=== PATIENT | male | born 1975 | race Caucasian/White ===

== ENCOUNTER 2020-04-11 23:52 | Emergency (ER) | payer BC ==
[~2020-04-11] VITALS: Ht 193 cm; Wt 157.5 kg
[2020-04-11] MEDS ORDERED: [UNRECOGNIZED DRUG - REMARK] (23:57)
[2020-04-12] MEDS ORDERED: KETOROLAC 30 MG/1 ML ONE (00:18)
[2020-04-12] MEDS ORDERED: ONDANSETRON 2MG/ML, 2ML ONE (00:18)
[2020-04-12 00:24] LABS: BASOPHILS # (AUTO) 0.04 x10^3/uL (0-0.1); BASOPHILS % (AUTO) 0 % (0-1); EOSINOPHILS # (AUTO) 0.15 x10^3/uL (0-0.4); EOSINOPHILS % (AUTO) 2 % (1-7); LYMPHOCYTES # (AUTO) 2.17 x10^3/uL (1-3.4); LYMPHOCYTES % (AUTO) 21 % (22-44); MD NO; MEAN CORPUSCULAR HGB CONC 33.4 g/dL (33.2-36.2); MEAN CORPUSCULAR VOLUME 86.9 fL (81-97); MEAN PLATELET VOLUME 8.9 fL (7.4-10.4); MONOCYTES % (AUTO) 8 % (2-9); NEUTROPHILS # (AUTO) 6.97 x10^3/uL (1.8-6.8); NEUTROPHILS % (AUTO) 69 % (42-75); PLATELET COUNT 215 x10^3/uL (130-400); RED BLOOD COUNT 5.29 x10^6/uL (4.38-5.82); RED CELL DISTRIBUTION WIDTH 14.1 % (9.4-14.8)
--- NOTE | 2020-04-12 00:28 | NUR ---
THIS IS A 44 YO MALE COMING IN FOR ACUTE ONSET LLQ ABD PAIN STARTING AT 2130 TONIGHT, PATIENT STATES "I THINK I HAVE A KIDNEY STONE". PATIENT STATES "I WAS [place]ING IN [place] ALL DAY AND DIDN'T DRINK ENOUGH WATER SO I THOUGHT MY URINE WAS DARK JUST FROM DEHYDRATION". PATIENT DENIES DYSURIA, POSSIBLY HEMATURIA, DENIES NAUSEA VOMITING OR DIARRHEA. SPO2 AND BP MONITORING IN PLACE. VSS AT THIS TIME. PIV PLACED, PATIENT MEDICATED PER EMAR. CALL LIGHT IN REACH
[2020-04-12] MEDS ORDERED: ONDANSETRON 2MG/ML, 2ML IVPush ONE (00:30)
[2020-04-12] MEDS ORDERED: KETOROLAC 30 MG/1 ML IVPush ONE (00:30)
[2020-04-12 00:35] LABS: ALANINE AMINOTRANSFERASE 90 U/L (12-78); ALBUMIN 3.5 g/dL (3.4-5.0); ANION GAP 6 mmol/L (5-15); CHLORIDE 108 mmol/L (98-107); CREATININE 1.46 mg/dL (0.7-1.3)
[2020-04-12 00:37] LABS: ALKALINE PHOSPHATASE 108 U/L (45-117); BILIRUBIN,TOTAL 0.6 mg/dL (0.2-1.0); TOTAL PROTEIN 7.9 g/dL (6.4-8.2)
--- NOTE | 2020-04-12 00:42 | NUR ---
PATIENT AMBULATORY WITH STEADY GAIT TO RESTROOM, UA CUP POVIDED
--- NOTE | 2020-04-12 00:48 | NUR ---
UA COLLECTED AND SENT
[2020-04-12 00:56] LABS: MICROSCOPIC NOT IND
--- NOTE | 2020-04-12 01:00 | NUR ---
PATIENT BACK FROM IMAGING AT THIS TIME
--- NOTE | 2020-04-12 01:10 | NUR ---
REPORT GIVEN TO IMELDA COLLINS. PLAN OF CARE DISCUSSED. AWAITING CT RESULTS
[2020-04-12 01:39] VITALS: BP 137/80
[2020-04-12] MEDS ORDERED: OMNIPAQUE 350 MG/ML, 100ML BOTTLE ONE (04:02)
== END 2020-04-12 01:41 | disposition home or self-care (01) ==
LOC: ED 04-12 00:43
DX: N20.1 Calculus of ureter (principal); N23 Unspecified renal colic; I10 Essential (primary) hypertension
CPT/HCPCS: 36415; 74177; 80053; 81003; 83690; 85025; 96374; 96375; 99285; J1885; J2405; Q9967

== ENCOUNTER 2021-01-16 09:14 | Emergency (ER) | payer BC ==
[~2021-01-16] VITALS: Ht 193 cm; Wt 164.2 kg
[~2021-01-16 09:14] MED LIST: [UNRECOGNIZED DRUG - REMARK]
[2021-01-16 09:15] VITALS: BP 190/118
[2021-01-16] MEDS ORDERED: DIPH,PERTUSS(ACELL),TET VAC/PF 0.5 ML IM-VACC ONE ×2 (09:43→10:00)
[2021-01-16] MEDS ORDERED: LIDOCAINE-MPF 1%, 5ML ONE (09:43)
[2021-01-16] MEDS ORDERED: LIDOCAINE-MPF 1%, 5ML INFIL ONE (10:00)
--- NOTE | 2021-01-16 10:03 | NUR ---
PER PT REQUEST CHEST SHAVED AROUND SITE. PT TOLERATED WELL.
== END 2021-01-16 10:55 | disposition home or self-care (01) ==
LOC: ED 09:43
DX: L72.3 Sebaceous cyst (principal); R07.89 Other chest pain
CPT/HCPCS: 10060; 90471; 90715; 99283

== ENCOUNTER 2021-01-18 07:00 | Emergency (ER) | payer BC ==
[~2021-01-18] VITALS: Ht 193 cm; Wt 164.5 kg
[2021-01-18 07:02] VITALS: BP 186/105
--- NOTE | 2021-01-18 07:08 | NUR ---
MD Mendes at bedside for eval and to remove packing.
== END 2021-01-18 07:22 | disposition home or self-care (01) ==
LOC: ED 07:15
DX: L02.213 Cutaneous abscess of chest wall (principal)
CPT/HCPCS: 99281